=== PATIENT | male | born 1985 | race Caucasian/White ===

== ENCOUNTER 2025-01-13 19:18 | Emergency (ER) | payer SELFPAY ==
[~2025-01-13] VITALS: Ht 165.1 cm; Wt 77.0 kg
[2025-01-13 19:28] VITALS: O2SAT 97
[2025-01-13] MEDS ORDERED: ACET-2708 MT (20:00)
[2025-01-13] MEDS ORDERED: CEPH500C2 MT (20:00)
[2025-01-13] MEDS: ACETAMINOPHEN 325MG TABLET PO ONE (20:10)
[2025-01-13] MEDS: TETANUS, DIPHTHERIA, PERTUSSIS VAC/PF 0.5ML (>10YR OLD) IM ONE (20:24)
[2025-01-13] MEDS ORDERED: GENTAMICIN 60MG PREMIX 50 ML IV SCH (21:00)
[2025-01-13] MEDS: GENTAMICIN 120MG PREMIX 100 ML IV NR (21:00)
[2025-01-13] MEDS: KETOROLAC 30MG/ML VIAL IV STA (21:28)
[2025-01-13] MEDS: SODIUM CHLORIDE 0.9% 1,000 ML IV ONE (21:28)
[2025-01-13] MEDS: CEFTRIAXONE 1GM/50ML 50 ML IV ONE (21:30)
[2025-01-13 21:44] LABS: BASOPHILS % 0.2 % (0.0-2.0); EOSINOPHILS % 0.9 % (0.0-5.0); HEMATOCRIT. 43.1 % (42.0-52.0); HEMOGLOBIN. 15.2 g/dL (14.0-18.0); LYMPHOCYTES % 14.4 % (20.0-50.0); MEAN CORPUSCULAR HEMOGLOBIN 29.2 pg (28.0-32.0); MEAN CORPUSCULAR HGB CONC 35.3 g/dL (31.0-37.0); MEAN CORPUSCULAR VOLUME 82.6 fL (80.0-94.0); MEAN PLATELET VOLUME 8.7 fl (7.4-10.4); MONOCYTES % 8.8 % (2.0-8.0); NEUTROPHILS % 75.7 % (40.0-76.0); PLATELET 197 x1000/uL (130-400); RED BLOOD CELL COUNT 5.22 mill/uL (4.7-6.1); RED CELL DISTRIBUTION WIDTH 13.1 % (11.6-14.6); WHITE BLOOD COUNT 6.9 x1000/uL (4.5-11.0)
[2025-01-13 21:51] LABS: CHLORIDE 105 mEq/L (98-107); POTASSIUM 3.7 mEq/L (3.5-5.1); SODIUM 139 mEq/L (136-145)
[2025-01-13 21:52] LABS: CARBON DIOXIDE 26 mEq/L (21-32)
[2025-01-13 21:53] LABS: CALCIUM 9.3 mg/dL (8.7-10.4)
[2025-01-13 21:57] LABS: GLUCOSE 126 mg/dL (70-105); PROTHROMBIN TIME 10.8 sec (9.6-11.0); UREA NITROGEN BLOOD 18 mg/dL (9-23)
[2025-01-13 22:51] VITALS: BP 160/111; PULSE 82; RESP 25; TEMP 36.8; O2SAT 97
== END 2025-01-13 23:32 ==
LOC: ER 19:44
DX: S61.200A Unspecified open wound of right index finger without damage to nail, initial encounter (principal); Z90.49 Acquired absence of other specified parts of digestive tract; Z79.899 Other long term (current) drug therapy; W45.8XXA Other foreign body or object entering through skin, initial encounter; Y93.89 Activity, other specified; Y92.89 Other specified places as the place of occurrence of the external cause; Y99.8 Other external cause status
CPT/HCPCS: 80048; 85025; 85610; 86850; 86900; 86901; 36415; 73140; 90715; 96367; 90471; 96365; 96375; 99285; J0696; J1580; J1885; J7030; Z7610 ×3; 96374